=== PATIENT | female | born 1990 | race Caucasian/White ===

== ENCOUNTER 2016-12-18 20:06 | Observation (INO) | payer BC ==
[2016-12-18] MEDS ORDERED: ONDANSETRON HCL 4 MG/2 ML 4 MG in SODIUM CHLORIDE 0.9% 100 ML 100 ML IV ONE (20:19)
[2016-12-18] MEDS ORDERED: FENTANYL 100MCG/2ML SOL IV ONE (20:19)
[2016-12-18] MEDS ORDERED: ONDANSETRON HCL 4 MG/2 ML SOL IV ONE ×2 (20:28→21:50)
[2016-12-18] MEDS ORDERED: FENTANYL 100MCG/2ML SOL ONE (20:35)
[2016-12-18 20:37] LABS: BASOPHILS % (AUTO) 0 % (0-3); EOSINOPHILS % (AUTO) 0 % (0-9); HEMATOCRIT 42 % (35-47); MEAN CORPUSCULAR HGB CONC 33.8 gm/dl (32.0-36.0); MONOCYTES % (AUTO) 2.1 % (0-12); NEUTROPHILS % (AUTO) 88.7 % (37-80)
[2016-12-18] MEDS ORDERED: ONDANSETRON HCL 4 MG/2 ML SOL ONE ×2 (20:37→21:55)
[2016-12-18 20:40] LABS: MEAN CORPUSCULAR VOLUME 81 fL (81-99)
[2016-12-18 20:44] LABS: CALCIUM 9.3 mg/dl (8.5-10.1); POTASSIUM 4.5 mMol/L (3.5-5.1)
[2016-12-18] MEDS ORDERED: HYDROMORPHONE HCL 2 MG/ML SOL IV ONE (21:46)
[2016-12-18] MEDS ORDERED: HYDROMORPHONE HCL 2 MG/ML SOL ONE (21:47)
[2016-12-18] MEDS ORDERED: ONDANSETRON HCL 4 MG/2 ML SOL IV PRN (23:18)
[2016-12-18] MEDS ORDERED: HYDROMORPHONE HCL 2 MG/ML SOL IV PRN (23:18)
[2016-12-18] MEDS ORDERED: PROCHLORPERAZINE EDISYLATE 5 MG/ML SOL IV PRN (23:19)
[2016-12-18] MEDS ORDERED: ACETAMINOPHEN 500 MG 500 MG TAB PO PRN (23:22)
[2016-12-18] MEDS ORDERED: TRIAMCINOLONE 0.1% CREAM CRE TOP PRN (23:22)
[2016-12-18] MEDS ORDERED: IBUPROFEN 400 MG TAB PO PRN (23:22)
[2016-12-19 00:03] VITALS: O2SAT 98
[2016-12-19] MEDS ORDERED: AMOXIL/CLAVULANATE 400/5 ML PDR ONE (00:08)
[2016-12-19] MEDS: APAP/OXYCODONE 325/5 TAB PO PRN ×3 (00:14→11:19)
[2016-12-19] MEDS: AMOXICILLIN PO SCH ×2 (00:35→10:34)
[2016-12-19] MEDS: [UNRECOGNIZED DRUG - OTHER] PO SCH ×2 (00:35→10:34)
[2016-12-19] MEDS: CLAVULANATE PO SCH ×2 (00:35→10:34)
[2016-12-19] MEDS ORDERED: AMOXIL/CLAVULANATE 400/5 ML PDR PO SCH (09:15)
[2016-12-19 11:42] VITALS: BP 113/75; PULSE 76; RESP 18; TEMP 97.5
== END 2016-12-19 11:55 | disposition home or self-care (01) ==
LOC: ED 20:06 → ACUTE CARE 22:59
PROVIDERS: ADMIT Family Medicine; ATTEND Family Medicine
DX: J95.831 Postprocedural hemorrhage of a respiratory system organ or structure following other procedure (principal); G89.18 Other acute postprocedural pain
CPT/HCPCS: 99285 ×3; 85025; 96374; 96375; 99218; J0780; J1170; J2405 ×2; J3010; 80048

== ENCOUNTER 2017-02-03 20:44 | Emergency (ER) | payer BC, OTHER ==
[2017-02-03] MEDS ORDERED: ONDANSETRON HCL 4 MG TAB PO ONE (21:07)
[2017-02-03] MEDS ORDERED: SODIUM CHLORIDE 0.9% 1000ML 1,000 ML IV ONE (21:07)
[2017-02-03] MEDS ORDERED: ACETAMINOPHEN 325 MG PO ONE (21:07)
[2017-02-03] MEDS ORDERED: ONDANSETRON HCL 4 MG/2 ML SOL ONE (21:16)
[2017-02-03 21:32] LABS: BASOPHILS % (AUTO) 1 % (0-3); EOSINOPHILS % (AUTO) 2 % (0-9); HEMATOCRIT 35 % (35-47); MEAN CORPUSCULAR HGB CONC 34.7 gm/dl (32.0-36.0); MEAN CORPUSCULAR VOLUME 82 fL (81-99); MONOCYTES % (AUTO) 5.4 % (0-12); NEUTROPHILS % (AUTO) 76.8 % (37-80)
[2017-02-03 21:33] VITALS: BP 132/88; PULSE 78; RESP 16; TEMP 98.3; O2SAT 99
[2017-02-03 21:41] LABS: POTASSIUM 3.9 mMol/L (3.5-5.1)
[2017-02-03] MEDS ORDERED: ACETAMINOPHEN 325 MG ONE (21:55)
[2017-02-03] MEDS ORDERED: SODIUM CHLORIDE 0.9% 1000ML 1,000 ML IV SCH (22:45)
[2017-02-04] MEDS ORDERED: HYDROMORPHONE HCL 2 MG/ML SOL IV ONE (00:17)
[2017-02-04] MEDS ORDERED: HYDROMORPHONE HCL 2 MG/ML SOL ONE (00:20)
== END 2017-02-04 00:55 | disposition home or self-care (01) | DRG 781 ==
LOC: ED 20:44
DX: O99.611 Diseases of the digestive system complicating pregnancy, first trimester (principal); K52.9 Noninfective gastroenteritis and colitis, unspecified; Z3A.10 10 weeks gestation of pregnancy
CPT/HCPCS: 36415; 80048; 85025; 96365; 96366; 96374; 99283; J1170; J2405

== ENCOUNTER 2017-03-08 21:50 | Emergency (ER) | payer OTHER ==
[2017-03-08 22:22] VITALS: RESP 20; TEMP 98.2; O2SAT 100
[2017-03-08 22:32] LABS: BASOPHILS % (AUTO) 0 % (0-3); EOSINOPHILS % (AUTO) 1 % (0-9); HEMATOCRIT 34 % (35-47); MEAN CORPUSCULAR VOLUME 84 fL (81-99); MONOCYTES % (AUTO) 4.3 % (0-12); NEUTROPHILS % (AUTO) 78.4 % (37-80)
[2017-03-08 22:38] LABS: APPEARANCE,URINE Clear; BILIRUBIN,URINE NEGATIVE (NEGATIVE); COLOR,URINE Yellow; GLUCOSE, URINE (UA) NEGATIVE (NEGATIVE); KETONES,URINE 2+ (NEGATIVE); LEUKOCYTE ESTERASE ,URINE NEGATIVE (NEGATIVE); NITRATE,URINE NEGATIVE (NEGATIVE); OCCULT BLOOD,URINE NEGATIVE (NEG-TRACE); PH,URINE 5.5; UROBILINOGEN,URINE 0.2 (0.2-1.0 EU)
[2017-03-08 22:46] LABS: ALBUMIN 3.4 gm/dl (3.4-5.0); CALCIUM 8.8 mg/dl (8.5-10.1)
[2017-03-08] MEDS ORDERED: ATROPINE 0.4 MG/ML SOL IV ONE (22:46)
[2017-03-08 22:49] LABS: RBC,URINE NEGATIVE (0-3AV/HPF); WBC,URINE 0-2 (0-5AV/HPF)
[2017-03-08] MEDS ORDERED: ATROPINE 0.1 MG/ML SOL ONE ×2 (22:54→22:55)
[2017-03-08] MEDS ORDERED: ONDANSETRON HCL 4 MG/2 ML SOL IV ONE (23:08)
[2017-03-08] MEDS ORDERED: HYDROMORPHONE HCL 2 MG/ML SOL IM ONE (23:08)
[2017-03-08] MEDS ORDERED: HYDROMORPHONE 1 MG/ML SYRINGE ONE ×2 (23:12→23:21)
[2017-03-08] MEDS ORDERED: ONDANSETRON HCL 4 MG/2 ML SOL ONE (23:13)
[2017-03-08] MEDS ORDERED: HYDROMORPHONE 1 MG/ML SYRINGE IV ONE (23:16)
[2017-03-08] MEDS ORDERED: SODIUM CHLORIDE 0.9% FLUSH 10 ML SOL IV PRN (23:19)
[2017-03-09] VITALS: BP 140/86; PULSE 121
== END 2017-03-08 23:50 | disposition short-term general hospital (02) | DRG 781 ==
LOC: ED 21:50
DX: O26.892 Other specified pregnancy related conditions, second trimester (principal); R10.31 Right lower quadrant pain; Z3A.15 15 weeks gestation of pregnancy
CPT/HCPCS: 36415; 80053; 81001; 85025; 96374; 96375; 99284; 99285; J0461; J2405; J1170

== ENCOUNTER 2017-06-28 18:36 | Emergency (ER) | payer OTHER ==
[2017-06-28 18:44] VITALS: RESP 18; TEMP 98.6
[2017-06-28 19:43] VITALS: BP 132/83; PULSE 98; O2SAT 100
== END 2017-06-28 19:40 | disposition home or self-care (01) | DRG 923 ==
LOC: ED 18:36
DX: Z04.1 Encounter for examination and observation following transport accident (principal); Z34.83 Encounter for supervision of other normal pregnancy, third trimester; V49.50XA Passenger injured in collision with unspecified motor vehicles in traffic accident, initial encounter; Z3A.37 37 weeks gestation of pregnancy
CPT/HCPCS: 59025; 99282; 99283

== ENCOUNTER 2017-08-02 21:46 | Emergency (ER) | payer OTHER ==
[2017-08-02] MEDS ORDERED: SODIUM CHLORIDE 0.9% 1000ML 1,000 ML IV ONE (22:15)
[2017-08-02] MEDS ORDERED: SODIUM CHLORIDE 0.9% FLUSH 10 ML SOL IV PRN (22:16)
[2017-08-02 22:57] VITALS: RESP 20; TEMP 97.5
[2017-08-03 00:11] VITALS: BP 123/77; PULSE 81; O2SAT 97
== END 2017-08-02 23:45 | disposition home or self-care (01) | DRG 780 ==
LOC: ED 21:46
DX: O47.03 False labor before 37 completed weeks of gestation, third trimester (principal); Z3A.35 35 weeks gestation of pregnancy
CPT/HCPCS: 59025; 96365; 99284; 99285

== ENCOUNTER 2017-08-04 18:11 | Emergency (ER) | payer BC, OTHER ==
[2017-08-04] MEDS ORDERED: ONDANSETRON 4 MG ODT BU ONE (18:27)
[2017-08-04 18:41] VITALS: BP 131/87; PULSE 113; RESP 16; TEMP 97.3; O2SAT 98
[2017-08-04] MEDS ORDERED: ONDANSETRON 4 MG ODT ONE (18:41)
[2017-08-04 18:47] LABS: BASOPHILS % (AUTO) 0 % (0-3); EOSINOPHILS % (AUTO) 3 % (0-9); HEMATOCRIT 31 % (35-47); MONOCYTES % (AUTO) 6.2 % (0-12); NEUTROPHILS % (AUTO) 70.2 % (37-80)
[2017-08-04 18:48] LABS: MEAN CORPUSCULAR VOLUME 80 fL (81-99)
[2017-08-04 18:50] LABS: CALCIUM 8.5 mg/dl (8.5-10.1); POTASSIUM 3.6 mMol/L (3.5-5.1)
[2017-08-04 18:55] LABS: APPEARANCE,URINE Clear; BILIRUBIN,URINE NEGATIVE (NEGATIVE); COLOR,URINE Yellow; GLUCOSE, URINE (UA) NEGATIVE (NEGATIVE); KETONES,URINE NEGATIVE (NEGATIVE); LEUKOCYTE ESTERASE ,URINE NEGATIVE (NEGATIVE); NITRATE,URINE NEGATIVE (NEGATIVE); OCCULT BLOOD,URINE NEGATIVE (NEG-TRACE); PH,URINE 6.5; UROBILINOGEN,URINE 0.2 (0.2-1.0 EU)
[2017-08-04 19:06] LABS: RBC,URINE NEGATIVE (0-3AV/HPF); WBC,URINE 0-1 (0-5AV/HPF)
== END 2017-08-04 19:17 | disposition home or self-care (01) ==
LOC: ED 18:11
DX: K52.9 Noninfective gastroenteritis and colitis, unspecified (principal)
CPT/HCPCS: 36415; 59025; 80048; 81001; 85025; 99283

== ENCOUNTER 2017-09-21 14:31 | Emergency (ER) | payer OTHER ==
[2017-09-21 14:32] VITALS: O2SAT 98
[2017-09-21] MEDS ORDERED: BACITRACIN 500 U/GM OIN TOP ONE ×2 (15:08)
[2017-09-21 15:29] VITALS: BP 151/93; PULSE 70; TEMP 97
== END 2017-09-21 15:36 | disposition home or self-care (01) | DRG 392 ==
LOC: ED 14:31
DX: R10.9 Unspecified abdominal pain (principal); O90.2 Hematoma of obstetric wound
CPT/HCPCS: 99282; A9270-GY

== ENCOUNTER 2017-10-21 18:18 | Inpatient (IN) | payer OTHER ==
[2017-10-21] MEDS ORDERED: SODIUM CHLORIDE 0.9% 1000ML 1,000 ML IV ONE (18:32)
[2017-10-21] MEDS: SODIUM CHLORIDE 0.9% FLUSH 10 ML SOL IV SCH ×2 (18:59→20:27)
[2017-10-21] MEDS ORDERED: SODIUM CHLORIDE 0.9% 1000ML 1,000 ML IV SCH (20:00)
[2017-10-21] MEDS ORDERED: LABETALOL HYDROCHLORIDE 5 MG/ML SOL IV ONE ×4 (20:13→22:10)
[2017-10-21 21:45] LABS: POTASSIUM 3.5 mMol/L (3.5-5.1)
[2017-10-21 23:39] LABS: CALCIUM 8.8 mg/dl (8.5-10.1); POTASSIUM 3.5 mMol/L (3.5-5.1)
[2017-10-21] MEDS ORDERED: LORAZEPAM 0.5 MG TAB PO ONE (23:57)
[2017-10-22 07:28] LABS: HEMATOCRIT 36 % (35-47); MEAN CORPUSCULAR HGB CONC 32.3 gm/dl (32.0-36.0)
[2017-10-22 07:36] LABS: ALBUMIN 3.6 gm/dl (3.4-5.0); CALCIUM 8.5 mg/dl (8.5-10.1); POTASSIUM 3.7 mMol/L (3.5-5.1)
[2017-10-22 08:26] LABS: MEAN CORPUSCULAR VOLUME 79 fL (81-99)
[2017-10-22 08:29] LABS: EOSINOPHILS % (MANUAL) 3 % (0-9); LYMPHOCYTES % (MANUAL) 39 % (10-50)
[2017-10-22 08:30] LABS: ANISOCYTOSIS SLIGHT AMT; BASOPHILS % (MANUAL) 0 % (0-3)
[2017-10-22] MEDS: APAP/HYDROCODONE 325/5 TAB PO PRN ×2 (10:20→23:23)
[2017-10-22] MEDS: SODIUM CHLORIDE 0.9% FLUSH 10 ML SOL IV SCH ×3 (11:01→23:23)
[2017-10-22 15:21] LABS: CALCIUM 8.5 mg/dl (8.5-10.1); POTASSIUM 3.6 mMol/L (3.5-5.1)
[2017-10-22] MEDS ORDERED: LABETALOL HYDROCHLORIDE 100 MG TAB PO ONE (21:07)
[2017-10-22] MEDS ORDERED: ACETAMINOPHEN 500 MG 500 MG TAB ONE (23:19)
[2017-10-23 07:16] LABS: CALCIUM 8.6 mg/dl (8.5-10.1); POTASSIUM 3.6 mMol/L (3.5-5.1)
[2017-10-23] MEDS ORDERED: LABETALOL HYDROCHLORIDE 100 MG TAB PO SCH (09:00)
[2017-10-23] MEDS: SODIUM CHLORIDE 0.9% FLUSH 10 ML SOL IV SCH ×3 (09:24→20:54)
[2017-10-23] MEDS: ALBUTEROL NEB SOL 2.5MG/3ML 1 VIAL SOL NEB PRN ×2 (09:25→09:36)
[2017-10-23 18:24] LABS: HEMATOCRIT 41 % (35-47)
[2017-10-23 18:35] LABS: MEAN CORPUSCULAR VOLUME 79 fL (81-99)
[2017-10-23 18:39] LABS: ALT 64 IU/L (14-63); CALCIUM 9.3 mg/dl (8.5-10.1); GLOM FILT RATE 91 mL/min (>60); POTASSIUM 3.7 mMol/L (3.5-5.1); SODIUM 141 mMol/L (136-145)
[2017-10-23 18:55] LABS: EOSINOPHILS % (MANUAL) 4 % (0-9); LYMPHOCYTES % (MANUAL) 30 % (10-50)
[2017-10-23 18:56] LABS: BASOPHILS % (MANUAL) 0 % (0-3); NORMAL RBCS PRESENT
[2017-10-23] MEDS: LABETALOL HYDROCHLORIDE 100 MG TAB PO SCH (20:54)
[2017-10-23 22:50] VITALS: RESP 16
[2017-10-24] MEDS: SODIUM CHLORIDE 0.9% FLUSH 10 ML SOL IV SCH ×2 (02:28→09:27)
[2017-10-24 07:29] LABS: CALCIUM 8.8 mg/dl (8.5-10.1); POTASSIUM 3.6 mMol/L (3.5-5.1)
[2017-10-24] MEDS: LABETALOL HYDROCHLORIDE 100 MG TAB PO SCH (09:25)
[2017-10-24 10:10] VITALS: BP 128/83; PULSE 76; TEMP 97.9; O2SAT 97
== END 2017-10-24 12:35 | disposition home or self-care (01) | DRG 641 ==
LOC: ACUTE CARE 18:39
PROVIDERS: ADMIT Family Medicine; ATTEND Family Medicine
DX: E87.1 Hypo-osmolality and hyponatremia (principal); I10 Essential (primary) hypertension; R00.2 Palpitations; L98.491 Non-pressure chronic ulcer of skin of other sites limited to breakdown of skin; R06.02 Shortness of breath
CPT/HCPCS: 36415; 71046; 71275; 80048; 80053; 83880; 84300; 84443; 84484; 85007; 85027; 85378; 93306; 94640; J7613; Q9967; A6219; A6232; A9270-GY; J3490

== ENCOUNTER 2018-04-28 16:13 | Emergency (ER) | payer OTHER ==
[2018-04-28 16:13] VITALS: O2SAT 98
[2018-04-28 16:32] VITALS: BP 137/96; PULSE 86; RESP 16; TEMP 98.1
[2018-04-28] MEDS ORDERED: TRAMADOL HYDROCHLORIDE 50 MG TAB PO ONE (17:24)
[2018-04-28] MEDS ORDERED: TRAMADOL HYDROCHLORIDE 50 MG TAB ONE (17:32)
== END 2018-04-28 18:11 | disposition home or self-care (01) | DRG 563 ==
LOC: ED 16:13
DX: S92.025A Nondisplaced fracture of anterior process of left calcaneus, initial encounter for closed fracture (principal)
CPT/HCPCS: 29515; 73610; 73630; 99283; A9270-GY; E0114

== ENCOUNTER 2018-05-26 10:30 | Outpatient (CLI) | payer OTHER | END 2018-05-26 10:31 | disposition home or self-care (01) | DRG 561 | LOC: CONVCARE 10:30 | PROVIDERS: ATTEND Orthopaedic Surgery | DX: S92.902D Unspecified fracture of left foot, subsequent encounter for fracture with routine healing (principal) | CPT/HCPCS: 73630 ==

== ENCOUNTER 2018-06-30 09:14 | Outpatient (CLI) | payer OTHER | END 2018-06-30 09:15 | disposition home or self-care (01) | DRG 561 | LOC: CONVCARE 09:14 | PROVIDERS: ATTEND Orthopaedic Surgery | DX: S92.902D Unspecified fracture of left foot, subsequent encounter for fracture with routine healing (principal) | CPT/HCPCS: 73630 ==

== ENCOUNTER 2018-12-23 14:08 | Emergency (ER) | payer OTHER ==
[2018-12-23] MEDS ORDERED: SOLUMEDROL 125 MG/2 ML 125 MG/2 ML PDS IM ONE (14:13)
[2018-12-23] MEDS ORDERED: DIPHENHYDRAMINE 50 MG/ML SOL IM ONE (14:13)
[2018-12-23] MEDS ORDERED: SOLUMEDROL 125 MG/2 ML 125 MG/2 ML PDS ONE (14:14)
[2018-12-23] MEDS ORDERED: DIPHENHYDRAMINE 50 MG/ML SOL ONE ×2 (14:14→15:36)
[2018-12-23] MEDS ORDERED: ALBUTEROL NEB SOL 2.5MG/3ML 1 VIAL SOL ONE (14:14)
[2018-12-23] MEDS ORDERED: SOLUMEDROL 125 MG/2 ML 125 MG/2 ML PDS IV ONE (14:20)
[2018-12-23] MEDS ORDERED: DIPHENHYDRAMINE 50 MG/ML SOL IV ONE ×2 (14:20→15:35)
[2018-12-23] MEDS ORDERED: ALBUTEROL NEB SOL 2.5MG/3ML 1 VIAL SOL NEB ONE (14:25)
[2018-12-23] MEDS ORDERED: SODIUM CHLORIDE 0.9% FLUSH 10 ML SOL IV PRN (14:33)
[2018-12-23 14:47] VITALS: TEMP 98
[2018-12-23 16:03] VITALS: BP 119/78; PULSE 95; RESP 16; O2SAT 98
== END 2018-12-23 16:21 | disposition home or self-care (01) | DRG 607 ==
LOC: ED 14:08
DX: L27.2 Dermatitis due to ingested food (principal); T78.3XXA Angioneurotic edema, initial encounter
CPT/HCPCS: 96374; 96375; 99285; 99291; J1200; J2930; J7613